=== PATIENT | female | born 1990 | race African-American/Black ===

== ENCOUNTER → 2016-10-01 | Emergency (ER) | payer MEDICAID ==
[~2016-10-01] VITALS: Ht 157.5 cm; Wt 68.2 kg
[~2016-10-01] MED LIST: ALBUTEROL0.83 MG/ML IH; ATIVAN; BENADRYL 50MG C50 MG PO; CELEXA; DROSPIRENONE; PROAIR HFA0.09 MG/AC IH; PROTONIX 40MG T40 MG PO; TRIAM OI 15 0.025 TOP; VENTOLIN0.09 MG IH
[2016-10-01 16:50] VITALS: TEMP 98.1
[2016-10-01 17:45] LABS: BASO % 0.1 % (0.0-2.0); EOS # 0.1 (0.0-0.7); EOS % 1.5 % (0-4.0); GRAN # 4.4 (1.4-6.5); GRAN % 51.6 % (42.2-75.2); HEMOGLOBIN 12.5 g/dl (12.5-16.0); LYMPH # 3.4 (1.2-3.4); LYMPH % 39.8 % (20.0-51.0); MEAN CELL VOLUME 91 fl (80.0-100.0); MEAN CORPUSCULAR HEMOGLOBIN 31 pg (27.0-31.0); MEAN CORPUSCULAR HGB CONC 34 g/dl (33.0-37.0); MEAN PLATELET VOLUME 11.9 fl (7.4-10.4); MONO # 0.6 (0.1-0.6); MONO % 6.6 % (1.7-9.3); PLATELET COUNT 190 K/mm3 (130-400); RED BLOOD COUNT 4.08 M/mm3 (4.10-5.30); WHITE BLOOD COUNT 8.5 K/mm3 (4.8-10.8)
[2016-10-01 18:13] LABS: ADJUSTED CALCIUM 9.5 mg/dL (8.4-10.2); ALANINE AMINOTRANSFERASE 33 U/L (9-52); ALBUMIN 4.2 gm/dL (3.5-5.0); ALKALINE PHOSPHATASE 71 U/L (50-136); ANION GAP 10 mmol/L (7-16); BILIRUBIN,TOTAL 0.6 mg/dL (0.0-1.0); BLOOD UREA NITROGEN 12 mg/dL (7-17); CALCIUM 9.7 mg/dL (8.4-10.2); CARBON DIOXIDE 26 mmol/L (22-30); CHLORIDE 102 mmol/L (98-107); CREATININE, serum 0.69 mg/dL (0.52-1.25); GLUCOSE 75 mg/dL (74-106); POTASSIUM 3.8 mmol/L (3.4-5.0); SODIUM 138 mmol/L (137-145); TOTAL PROTEIN 7.6 gm/dL (6.4-8.2)
[2016-10-01 18:18] LABS: C-REACTIVE PROTEIN < 0.5 mg/dL (0.0-0.9)
[2016-10-01 19:28] LABS: PH 7 (5-8); SQUAMOUS EPITHELIAL 0-2 /hpf; URINE APPEARANCE Clear; URINE BACTERIA None Seen /hpf; URINE BILIRUBIN Negative (NEGATIVE); URINE BLOOD Negative (NEGATIVE); URINE COLOR Straw; URINE GLUCOSE Negative (NEGATIVE); URINE KETONE Negative (NEGATIVE); URINE RBC 0-2 /hpf; URINE UROBILINOGEN Negative (NEGATIVE)
[2016-10-01 20:08] VITALS: BP 117/85; PULSE 83
[2016-10-01 21:53] LABS: CHLAMYDIA/TRACH by PCR Female Not Detected; NEISSERIA GON by PCR Female Not Detected
== END | disposition home or self-care (01) ==
LOC: COL.ER 16:33
PROVIDERS: Emergency Medicine
DX: R10.84 Generalized abdominal pain (principal)
CPT/HCPCS: J2405; J7030; Q9967

== ENCOUNTER → 2016-10-04 | Outpatient (CLI) | payer MEDICAID ==
[2016-10-04 10:51] LABS: HEMOGLOBIN 12.9 g/dl (12.5-16.0); MEAN CELL VOLUME 92 fl (80.0-100.0); MEAN CORPUSCULAR HEMOGLOBIN 30 pg (27.0-31.0); MEAN CORPUSCULAR HGB CONC 33 g/dl (33.0-37.0); MEAN PLATELET VOLUME 12.4 fl (7.4-10.4); PLATELET COUNT 195 K/mm3 (130-400); RED BLOOD COUNT 4.25 M/mm3 (4.10-5.30); REDCELL DISTRIBUTION WIDTH-CV 12.9 % (11.5-14.5); WHITE BLOOD COUNT 9.1 K/mm3 (4.8-10.8)
[2016-10-04 11:02] LABS: ADJUSTED CALCIUM 9.8 mg/dL (8.4-10.2); ALBUMIN 4.3 gm/dL (3.5-5.0); BILIRUBIN,TOTAL 0.5 mg/dL (0.0-1.0); CREATININE, serum 0.75 mg/dL (0.52-1.25); POTASSIUM 4.1 mmol/L (3.4-5.0); TOTAL PROTEIN 7.8 gm/dL (6.4-8.2)
== END ==
LOC: COL.LAB 09:32
PROVIDERS: Family Medicine
DX: R10.31 Right lower quadrant pain (principal)

== ENCOUNTER → 2016-10-09 | Outpatient (CLI) | payer MEDICAID | LOC: COL.RAD 10:04 | DX: R10.11 Right upper quadrant pain (principal) | CPT/HCPCS: A9537; J2805 ==

== ENCOUNTER 2016-11-29 07:27 | Day surgery (SDC) | payer MEDICAID ==
[~2016-11-29] VITALS: Ht 157.5 cm; Wt 68.3 kg
[~2016-11-29 07:27] MED LIST changes: -ALBUTEROL0.83 MG/ML IH; -TRIAM OI 15 0.025 TOP
[2016-11-29 08:04] VITALS: BP 119/80; PULSE 88; TEMP 98.6
[2016-11-29] MEDS ORDERED: ALBUTEROL0.83 MG/ML IH (08:16)
[2016-11-29] MEDS ORDERED: TRIAM OI 15 0.025 TOP (08:17)
[2016-11-29 10:00] VITALS: BP 124/83; PULSE 88; TEMP 97.7
[2016-11-29 10:15] VITALS: BP 103/71; PULSE 98
[2016-11-29 10:30] VITALS: BP 108/64; PULSE 89
[2016-11-29 11:26] VITALS: BP 105/64; PULSE 84
== END 2016-11-29 10:44 | disposition home or self-care (01) ==
LOC: SDCO 07:27
DX: K21.0 Gastro-esophageal reflux disease with esophagitis (principal); R11.2 Nausea with vomiting, unspecified; K59.00 Constipation, unspecified; R19.7 Diarrhea, unspecified; F17.200 Nicotine dependence, unspecified, uncomplicated; R12 Heartburn; R10.84 Generalized abdominal pain
CPT/HCPCS: OP; J2250; J3010; J7030